=== PATIENT | female | born 1955 | race Caucasian/White ===

== ENCOUNTER 2019-10-06 13:52 | Emergency (ER) | payer OTHER ==
--- NOTE | 2019-10-06 14:07 | EDM.PDOC ---
ED HPI GENERAL MEDICAL PROBLEM - General Chief Complaint: Respiratory Problem Stated Complaint: COUGH,CONGESTION SENT BY CLINIC Time Seen by Provider: 10/06/19 14:00 Source of Information: Reports: Patient, RN Notes Reviewed - History of Present Illness INITIAL COMMENTS - FREE TEXT/NARRATIVE: 64 year old female with onset of worsening cough paulette. 2 to 3 days ago, she was also ill 2 to 3 wks ago, that all did get better and now feeling much worse. She has nasal paulette., sinus pressure, ear pressure, chills, possible low grade fever, generalized achiness. She did not get a flu shot this year. Cough clear and colored phlegm. Reported to have had small area of pneumonia 2 weeks ago treated with doxycycline 100 mg bid for either 7 or 10 days. - Related Data Allergies Allergy/AdvReac Type Severity Reaction Status Date / Time No Known Allergies Allergy Verified 10/06/19 14:06 Home Meds: Home Meds predniSONE [Prednisone] 50 mg PO DAILY #5 tablet 10/06/19 [Rx] ED ROS GENERAL - Review of Systems Review Of Systems: See Below Constitutional: Reports: Fever, Chills HEENT: Reports: Rhinitis, Sinus Problem, Throat Pain Respiratory: Reports: Shortness of Breath, Cough, Sputum Cardiovascular: Reports: Chest Pain (with coughing) GI/Abdominal: Denies: Abdominal Pain, Nausea, Vomiting Musculoskeletal: Reports: No Symptoms Skin: Reports: No Symptoms Neurological: Reports: Headache (mild) ED EXAM, GENERAL - Physical Exam Exam: See Below General Appearance: Alert, No Apparent Distress Ears: Normal Canal, Normal TMs Nose: Normal Inspection Throat/Mouth: Normal Inspection, Normal Oropharynx Head: Atraumatic. No: Facial Swelling Neck: Supple. No: Lymphadenopathy (L), Lymphadenopathy (R) Respiratory/Chest: No Respiratory Distress, Lungs Clear, Normal Breath Sounds Cardiovascular: Regular Rate, Rhythm Back Exam: No: CVA Tenderness (L), CVA Tenderness (R) Extremities: Normal Inspection. No: Pedal Edema, Leg Pain Neurological: Alert, Oriented, No Motor/Sensory Deficits Skin Exam: Warm, Dry, Normal Color Course - Vital Signs Last Recorded V/S: Last Vital Signs Temp 99.1 F 10/06/19 13:58 Pulse 75 10/06/19 13:58 Resp 18 10/06/19 13:58 BP 145/83 H 10/06/19 13:58 Pulse Ox 91 L 10/06/19 13:58 - Orders/Labs/Meds Labs: Laboratory Tests 10/06/19 10/06/19 Range/Units 14:45 14:45 WBC 14.22 H (3.98-10.04) K/mm3 RBC 5.09 (3.98-5.22) M/mm3 Hgb 14.8 (11.2-15.7) gm/dl Hct 47.7 H (34.1-44.9) % MCV 93.7 (79.4-94.8) fl MCH 29.1 (25.6-32.2) pg MCHC 31.0 L (32.2-35.5) g/dl RDW Std Deviation 45.5 (36.4-46.3) fL Plt Count 167 L (182-369) K/mm3 MPV 12.6 H (9.4-12.3) fl Neut % (Auto) 79.7 H (34.0-71.1) % Lymph % (Auto) 13.2 L (19.3-51.7) % [place] % (Auto) 5.9 (4.7-12.5) % Eos % (Auto) 0.8 (0.7-5.8) Baso % (Auto) 0.2 (0.1-1.2) % Neut # (Auto) 11.32 H (1.56-6.13) K/mm3 Lymph # (Auto) 1.88 (1.18-3.74) K/mm3 [place] # (Auto) 0.84 H (0.24-0.36) K/mm3 Eos # (Auto) 0.12 (0.04-0.36) K/mm3 Baso # (Auto) 0.03 (0.01-0.08) K/mm3 Manual Slide Review Normal smear C-Reactive Protein 1.4 H* (<1.0) mg/dL Meds: Medications Discontinued Medications Generic Name Dose Route Start Last Admin Trade Name Freq PRN Reason Stop Dose Admin Azithromycin 500 mg 10/06/19 16:35 10/06/19 16:47 Zithromax PO 10/06/19 16:36 500 mg ONETIME ONE Administration Prednisone 40 mg 10/06/19 16:35 10/06/19 16:47 Prednisone PO 10/06/19 16:36 40 mg ONETIME ONE Administration - Re-Assessments/Exams Free Text/Narrative Re-Assessment/Exam: 10/07/19 13:38CXR shows small infiltrate RML. Unknown if this is residual from 2.3 weeks ago or new onset. She just had a course of doxycycline. Gave zithromax 500 mg in the ED and than to start a Zpack next day. Discharge instr. as documented. Departure - Departure Time of Disposition: 16:36 Disposition: Home, Self-Care 01 Condition: Fair Clinical Impression: Pneumonia - Discharge Information Prescriptions: predniSONE [Prednisone] 50 mg PO DAILY #5 tablet Instructions: Asthma, Adult Referrals: Christine Cardozo PA-C [Primary Care Provider] - Forms: ED Department Discharge, ED Return to Work/School Form Additional Instructions: prednisone as prescribed. Continue zithromax as prescribed with your next dose tomorrow. Rest. Vaporizer or steam as needed. Continue albuterol nebs and other meds as prescribed. Follow up clinic in about 3 to 4 days for recheck, call for appt. return to ED as needed. Sepsis Event Note - Evaluation Sepsis Screening Result: No Definite Risk - Focused Exam Date Exam was Performed: 10/07/19 Time Exam was Performed: 13:38
[2019-10-06] MEDS ORDERED: predniSONE 20 MG Tab PO ONE (16:35)
[2019-10-06] MEDS ORDERED: Azithromycin 250 MG Tab PO ONE (16:35)
--- NOTE | 2019-10-06 17:49 | CR ---
Chest: Two views of the chest were obtained. Comparison: No prior chest imaging is available. Heart size and mediastinum are normal. Slight increased density is noted within the right middle lobe. Lungs otherwise are clear. Bony structures show mild degenerative change within the spine. Impression: 1. Mild increased density within the right middle lobe. Findings most likely due to early area of pneumonia. 2. Other findings which are felt to be incidental. Diagnostic code #3 This report was dictated in [place] Standard Time
== END 2019-10-06 16:51 | disposition home or self-care (01) ==
LOC: JD.ED 13:52
DX: J18.9 Pneumonia, unspecified organism (principal); Z79.899 Other long term (current) drug therapy
CPT/HCPCS: 36415; 71046; 85025; 86140; 87804; 99283; A9270

== ENCOUNTER 2024-09-20 16:11 | Emergency (ER) | payer MEDICARE, OTHER ==
[2024-09-20] MEDS: Ketorolac 15 MG/ML SDV IVPUSH ONE (17:00)
[2024-09-20] MEDS: methylPREDNISolone Sodium Succinate 125 MG/2 ML SDV IVPUSH ONE (17:03)
[2024-09-20] MEDS: Sodium Chloride 0.9% 10 ML Syringe FLUSH PRN (17:04)
[2024-09-20 17:11] LABS: HEMATOCRIT 45.6 % (37.0-47.0); HEMOGLOBIN 14.5 gm/dl (12.0-16.0); MEAN CORPUSCULAR HEMOGLOBIN 29.2 pg (28.0-32.0); MEAN CORPUSCULAR HGB CONC 31.8 g/dl (32.0-36.0); MEAN CORPUSCULAR VOLUME 91.8 fl (83.0-99.0); MEAN PLATELET VOLUME 12.2 fl (9.4-12.3); PLATELET COUNT,PLT 148 K/mm3 (150-400); RED BLOOD CELL COUNT 4.97 M/mm3 (4.10-5.30); WHITE BLOOD CELL COUNT,WBC 8.08 K/mm3 (3.9-11.3)
[2024-09-20] MEDS: Albuterol/Ipratropium 3.0-0.5 MG/3 ML Neb Soln NEB ONE ×2 (17:16→18:47)
[2024-09-20 17:41] LABS: INR 1.1; PROTHROMBIN TIME 11.6 SECONDS (9.7-12.0)
[2024-09-20 17:48] LABS: A/G RATIO 1.2 (1-2); ALBUMIN 3.6 g/dl (3.4-5.0); ANION GAP 7.3 (5-15); BILIRUBIN TOTAL 0.5 mg/dL (0.2-1.0); BUN/CREATININE RATIO 14.3 (14-18); C-REACTIVE PROTEIN 3.16 mg/dL (<0.30); CALCIUM 8.7 mg/dL (8.5-10.1); CREATININE 0.7 mg/dL (0.55-1.02); EST CRCL DRUG DOSING (CG) 74.01 mL/min; LACTIC ACID 0.7 mmol/L (0.4-2.0); POTASSIUM,K 4.3 mEq/L (3.5-5.1); PROTEIN TOTAL,TP 6.7 g/dl (6.4-8.2)
[2024-09-20 17:51] LABS: BAND PERCENT MAN 2 % (0-10); BASOPHILS PERCENT MAN 0 (0.1-1.2); EOSINOPHILS PERCENT MAN 0 % (0.7-5.8); LYMPHOCYTES PERCENT MAN 9 % (20-40); MONOCYTES PERCENT MAN 6 % (2-10); PLATELET COUNT ESTIMATE ADEQUATE
[2024-09-20 17:52] LABS: LYMPHOCYTES % ATYPICAL MANUAL 8 %
[2024-09-20] MEDS: REMDESIVIR 200 MG in Sodium Chloride 0.9% 250 ML IV ONE (19:14)
== END 2024-09-20 20:48 | disposition home or self-care (01) ==
LOC: JD.ED 16:11
DX: U07.1 COVID-19 (principal); J44.9 Chronic obstructive pulmonary disease, unspecified; F17.210 Nicotine dependence, cigarettes, uncomplicated; Z90.89 Acquired absence of other organs; Z79.52 Long term (current) use of systemic steroids
CPT/HCPCS: 36415; 71045; 80053; 83605; 84484; 85007; 85027; 85610; 86140; 87040; 87428; 94640; 96365; 96375; 99285; J0248; J1885; J2919; J7050; J7620-GY

== ENCOUNTER 2024-10-21 11:17 | Emergency (ER) | payer MEDICARE, OTHER ==
[2024-10-21 11:59] LABS: BASOPHILS PERCENT AUTO 0.5 % (0.0-1.0); EOSINOPHILS ABSOLUTE AUTO 0.2 K/mm3 (0.0-0.4); EOSINOPHILS PERCENT AUTO 2.6 % (0.0-6.0); HEMATOCRIT 45.3 % (37.0-47.0); HEMOGLOBIN 14.5 gm/dl (12.0-16.0); IMMATURE GRAN ABSOLUTE AUTO 0.02 K/mm3 (0.00-0.05); IMMATURE GRAN PERCENT AUTO 0.2 % (0.0-0.4); LYMPHOCYTES PERCENT AUTO 22.8 % (24.0-44.0); MEAN CORPUSCULAR HEMOGLOBIN 29.1 pg (28.0-32.0); MEAN PLATELET VOLUME 12.3 fl (9.4-12.3); MONOCYTES ABSOLUTE AUTO 0.7 K/mm3 (0.0-0.8); NEUTROPHILS ABSOLUTE AUTO 5.7 K/mm3 (1.8-7.7); NEUTROPHILS PERCENT AUTO 65.9 % (41.0-71.0); PLATELET COUNT,PLT 216 K/mm3 (150-400); RED BLOOD CELL COUNT 4.98 M/mm3 (4.10-5.30); WHITE BLOOD CELL COUNT,WBC 8.59 K/mm3 (3.9-11.3)
[2024-10-21] MEDS: Albuterol/Ipratropium 3.0-0.5 MG/3 ML Neb Soln NEB ONE ×2 (12:09→13:24)
[2024-10-21 12:31] LABS: A/G RATIO 1.1 (1-2); ALANINE AMINOTRANSFERASE,ALT 31 U/L (14-59); ALBUMIN 3.7 g/dl (3.4-5.0); ALKALINE PHOSPHATASE 80 U/L (46-116); ANION GAP 10.5 (5-15); ASPARTATE AMNIOTRANSFERASE,AST 15 U/L (15-37); BILIRUBIN TOTAL 0.9 mg/dL (0.2-1.0); BLOOD UREA NITROGEN,BUN 20 mg/dL (7-18); BUN/CREATININE RATIO 22.2 (14-18); CALCIUM 9.3 mg/dL (8.5-10.1); CARBON DIOXIDE,CO2 30 mEq/L (21-32); CHLORIDE,CL 100 mEq/L (98-107); CREATININE 0.9 mg/dL (0.55-1.02); EST CRCL DRUG DOSING (CG) 56.78 mL/min; ESTIMATED GFR 70 mL/min (>60); GLUCOSE RANDOM 108 mg/dL (70-99); POTASSIUM,K 4.5 mEq/L (3.5-5.1); PROTEIN TOTAL,TP 7.1 g/dl (6.4-8.2); SODIUM,NA 136 mEq/L (136-145); TROPONIN I HIGH SENSITIVITY < 4 pg/mL (<=51)
[2024-10-21] MEDS: methylPREDNISolone Sodium Succinate 125 MG/2 ML SDV IVPUSH ONE (13:17)
== END 2024-10-21 14:19 | disposition home or self-care (01) ==
LOC: JD.ED 11:17
DX: J44.1 Chronic obstructive pulmonary disease with (acute) exacerbation (principal); Z86.16 Personal history of COVID-19; Z79.899 Other long term (current) drug therapy
CPT/HCPCS: 36415; 71045; 80053; 83880; 84484; 85025; 87428; 93005; 94640; 96374; 99285; J2919; 93010; 99284; J7620-GY

== ENCOUNTER 2024-12-25 08:49 | Day surgery (SDC) | payer MEDICARE, OTHER ==
[~2024-12-25 08:49] MED LIST: Sodium Chloride 0.9% 10 ML Syringe FLUSH PRN; Sodium Chloride 0.9% 10 ML Syringe FLUSH SCH
[2024-12-25] MEDS: Lactated Ringers 1,000 ML IV SCH (09:15)
[2024-12-25] MEDS ORDERED: HYDROmorphone 0.5 MG/0.5 ML Syringe IVPUSH PRN (09:32)
[2024-12-25] MEDS ORDERED: fentaNYL 100 MCG/2 ML SDV IVPUSH PRN (09:32)
[2024-12-25] MEDS ORDERED: Ondansetron 4 MG/2 ML SDV IVPUSH PRN (09:32)
[2024-12-25] MEDS ORDERED: propofoL 500 MG/50 ML 50 ML ONE (09:52)
[2024-12-25] MEDS ORDERED: Ondansetron 4 MG/2 ML SDV ONE (09:54)
== END 2024-12-25 11:42 | disposition home or self-care (01) ==
LOC: JD.SDS 08:49
PROVIDERS: ATTEND Surgery
DX: Z12.11 Encounter for screening for malignant neoplasm of colon (principal); R19.5 Other fecal abnormalities; K63.5 Polyp of colon; K57.30 Diverticulosis of large intestine without perforation or abscess without bleeding; K64.8 Other hemorrhoids; J44.9 Chronic obstructive pulmonary disease, unspecified; K21.9 Gastro-esophageal reflux disease without esophagitis; F41.9 Anxiety disorder, unspecified; Z87.891 Personal history of nicotine dependence; Z79.899 Other long term (current) drug therapy
CPT/HCPCS: 45380; J2405; J2704; J7120; 00811